=== PATIENT | female | born 1995 | race Caucasian/White ===

== ENCOUNTER 2017-10-03 01:25 | Inpatient (IN) | payer OTHER ==
[~2017-10-03] VITALS: Ht 165.1 cm; Wt 79.4 kg
[2017-10-03] MEDS ORDERED: PROMETHAZINE 25 MG/ML VIAL IVP PRN (02:05)
[2017-10-03] MEDS ORDERED: OXYTOCIN 10 UNITS/ML VIAL IM SCH (02:05)
[2017-10-03] MEDS ORDERED: IBUPROFEN 800 MG TAB PO PRN (02:05)
[2017-10-03] MEDS ORDERED: METHYLERGONOVINE 0.2 MG/ML AMP IM PRN ×2 (02:05→16:55)
[2017-10-03] MEDS ORDERED: OXYTOCIN 20 UNITS in LACTATED RINGERS 1,000 ML IV SCH (02:05)
[2017-10-03] MEDS ORDERED: CARBOPROST 250 MCG/ML AMP IM PRN (02:05)
[2017-10-03] MEDS ORDERED: NALBUPHINE 10 MG/ML AMP IVP PRN (02:05)
[2017-10-03 02:36] LABS: BASOPHILS # (AUTO) 0.1 K/uL (0.00-0.22); BASOPHILS % (AUTO) 0.9 % (0.0-2.0); EOSINOPHILS # (AUTO) 0.1 K/uL (0-0.4); EOSINOPHILS % (AUTO) 0.7 % (0.0-4.0); HEMATOCRIT 31.7 % (36-48); HEMOGLOBIN 10.1 g/dL (12.0-16.0); LYMPHOCYTES # (AUTO) 1.9 K/uL (2.5-16.5); LYMPHOCYTES % (AUTO) 20.9 % (20.5-51.1); MEAN CORPUSCULAR HEMOGLOBIN 22 pg (27-31); MEAN CORPUSCULAR HGB CONC 32 g/dL (33-37); MEAN CORPUSCULAR VOLUME 70 fL (80-94); MONOCYTES # (AUTO) 0.8 K/uL (0.8-1.0); MONOCYTES % (AUTO) 8.3 % (1.7-9.3); NEUTROPHILS # (AUTO) 6.4 K/uL (1.8-7.7); NEUTROPHILS % (AUTO) 69.2 % (42.2-75.2); PLATELET COUNT (AUTO) 265 K/uL (140-450); RED BLOOD CELL COUNT(AUTO) 4.55 MIL/uL (4.20-5.40); RED CELL DISTRIBUTION WIDTH 15.8 % (11.6-13.7); WHITE BLOOD COUNT (AUTO) 9.3 K/uL (4.5-11.0)
[2017-10-03 02:58] LABS: APPEARANCE,URINE HAZY (CLEAR); BILIRUBIN,URINE NEGATIVE (NEGATIVE); BLOOD, URINE NEGATIVE (NEGATIVE); COLOR,URINE YELLOW (YELLOW); LEUKOCYTE ESTERASE ,URINE NEGATIVE (NEGATIVE); NITRITE, URINE NEGATIVE (NEGATIVE); UGLUCOSE TRACE (NEGATIVE)
[2017-10-03 03:08] LABS: ALBUMIN 2.6 g/dL (3.4-5.0); ANION GAP 15.9 (8-16); CREATININE 0.6 mg/dL (0.6-1.3); POTASSIUM 3.9 mmol/L (3.5-5.1); TOTAL BILIRUBIN 0.3 mg/dL (0.0-1.0)
[2017-10-03 03:18] LABS: RBC,URINE 0-5 (RARE) /HPF (0-5)
[2017-10-03] MEDS ORDERED: AMPICILLIN 2,000 MG VIAL ONE (05:42)
[2017-10-03] MEDS ORDERED: AMPICILLIN 2,000 MG in NACL 0.9% 100 ML IV SCH (06:00)
[2017-10-03] MEDS ORDERED: PREN-546 PO (07:05)
[2017-10-03] MEDS: LACTATED RINGERS 1,000 ML IV SCH ×2 (09:05→10:58)
[2017-10-03] MEDS ORDERED: BUPIVACAINE 0.125%/NS PREMIX 250 ML ONE (09:53)
[2017-10-03] MEDS ORDERED: AMPICILLIN 1,000 MG VIAL ONE ×2 (10:40→13:50)
[2017-10-03] MEDS: AMPICILLIN 1,000 MG in NACL 0.9% 50 ML IV SCH ×2 (10:42→14:27)
[2017-10-03] MEDS ORDERED: OXYTOCIN 10 UNITS/ML VIAL ONE (15:32)
[2017-10-03] MEDS ORDERED: METHYLERGONOVINE 0.2 MG TAB PO PRN (16:55)
[2017-10-03] MEDS ORDERED: OXYTOCIN 10 UNITS/ML VIAL IM PRN (16:55)
[2017-10-03] MEDS ORDERED: BENZOCAINE/MENTHOL 20%-0.5% 60 GM CAN TP PRN (16:55)
[2017-10-03] MEDS ORDERED: SODIUM PHOSPHATE 118 ML ENEM RC PRN (16:55)
[2017-10-03] MEDS ORDERED: TEMAZEPAM 15 MG CAP PO PRN (16:55)
[2017-10-03] MEDS ORDERED: oxyCODONE/APAP 5/325 MG 1 TAB TAB PO PRN (16:55)
[2017-10-03] MEDS ORDERED: MEASLES, MUMPS, AND RUBELLA 1 VIAL SQVAC PRN (16:55)
[2017-10-03] MEDS ORDERED: HYDROcodone/APAP 5/325 MG 1 TAB TAB PO PRN (16:55)
[2017-10-03] MEDS ORDERED: BLOOD GLUCOSE MONITORING 1 DEV DEV FS SCH (21:00)
[2017-10-03] MEDS ORDERED: DOCUSATE SOD/SENNA 50/8.6 MG 1 TAB PO SCH (21:00)
[2017-10-04 06:46] LABS: HEMATOCRIT 29.4 % (36-48); HEMOGLOBIN 9.2 g/dL (12.0-16.0)
--- NOTE | 2017-10-04 08:14 | NUR ---
PATIENT HAS BEEN SCREENED AND CATEGORIZED LOW NUTRITION RISK. PATIENT WILL BE SEEN WITHIN 7 DAYS OF ADMISSION. 10/09/[address]
[2017-10-04] MEDS ORDERED: DOCUSATE SOD/SENNA 50/8.6 MG 1 TAB PO SCH (21:00)
[2017-10-05] MEDS ORDERED: IBUP-1842 PO (07:54)
[2017-10-05 11:29] LABS: RAPID PLASMA REAGIN NON-REACTIVE (Non Reactiv)
== END 2017-10-05 12:55 | disposition home or self-care (01) | DRG 560 ==
LOC: MLD 01:25 → MFCC 18:25
PROVIDERS: ADMIT Obstetrics & Gynecology; ATTEND Obstetrics & Gynecology
PROC: 10E0XZZ Delivery of Products of Conception, External Approach (ICD-10-PCS; 2017-10-03)
PROC: 0KQM0ZZ Repair Perineum Muscle, Open Approach (ICD-10-PCS; 2017-10-03)
PROC: 3E0234Z Introduction of Serum, Toxoid and Vaccine into Muscle, Percutaneous Approach (ICD-10-PCS; principal; 2017-10-04)
PROC: 3E0R3BZ Introduction of Anesthetic Agent into Spinal Canal, Percutaneous Approach (ICD-10-PCS; 2017-10-04)
PROC: 00HU33Z Insertion of Infusion Device into Spinal Canal, Percutaneous Approach (ICD-10-PCS; 2017-10-04)
PROC: 3E033VJ Introduction of Other Hormone into Peripheral Vein, Percutaneous Approach (ICD-10-PCS; 2017-10-04)
DX: O70.1 Second degree perineal laceration during delivery (principal); Z23 Encounter for immunization; Z37.0 Single live birth; Z3A.40 40 weeks gestation of pregnancy
CPT/HCPCS: 36415; 51702; 59409; 80053; 81001; 82948; 85018; 85025; 86592; 86886; 86900; 86901; 87086; 87653-90; 90715; J0290; J2590; J3490; J7120